=== PATIENT | female | born 1935 | race Hispanic/Latino ===

== ENCOUNTER → 2019-10-02 | Outpatient (CLI) | payer OTHER | END | disposition home or self-care (01) | LOC: SHCH 10:50 | PROVIDERS: ATTEND Internal Medicine Cardiovascular Disease | DX: I10 Essential (primary) hypertension (principal) | CPT/HCPCS: 93925 ==

== ENCOUNTER 2020-10-26 14:42 | Inpatient (IN) | payer OTHER ==
[~2020-10-26] VITALS: Ht 154.9 cm; Wt 71.7 kg
[2020-10-26] MEDS ORDERED: PHENAZOPYRIDINE HCL 200 MG TABLET ONE (14:53)
[2020-10-26] MEDS ORDERED: CEFTRIAXONE 1G VIAL ONE (14:53)
[2020-10-26 15:30] LABS: BASOPHILS % (AUTO) 0.5 % (0.0-5.0); EOSINOPHILS % (AUTO) 0.7 % (0.0-8.0); HEMATOCRIT 42.1 % (36-48); LYMPHOCYTES % (AUTO) 18.1 % (21.0-51.0); MEAN CORPUSCULAR HEMOGLOBIN 29.6 pg (27.0-33.0); MEAN CORPUSCULAR HGB CONC 33.5 g/dL (32.0-36.0); MEAN CORPUSCULAR VOLUME 88.3 fL (79-99); MONOCYTES % (AUTO) 6.4 % (3.0-13.0); NEUTROPHILS % (AUTO) 73.8 % (40.0-77.0); PLATELET COUNT (AUTO) 221 K/uL (130-400); RED BLOOD CELL COUNT(AUTO) 4.77 MIL/uL (4.00-5.50); WHITE BLOOD COUNT (AUTO) 8.8 K/uL (4.8-10.8)
[2020-10-26 15:35] LABS: APPEARANCE,URINE Clear (CLEAR); BILIRUBIN,URINE Negative (NEGATIVE); COLOR,URINE Yellow (YELLOW); GLUCOSE, URINE (UA) >=1000 mg/dL (NEGATIVE); KETONES,URINE 40 mg/dL (NEGATIVE); LEUKOCYTE ESTERASE ,URINE Trace (NEGATIVE); NITRATE,URINE Positive (NEGATIVE); OCCULT BLOOD,URINE Negative (NEGATIVE); PROTEIN,URINE Trace mg/dL (NEGATIVE)
[2020-10-26 15:40] LABS: BACTERIA,URINE Moderate /HPF (None Seen); POTASSIUM 4.3 mmol/L (3.5-5.1); RBC,URINE 0-1 /HPF (0-1)
[2020-10-26] MEDS ORDERED: ONDANSETRON 4MG INJ ONE (15:40)
[2020-10-26] MEDS ORDERED: 0.9%NACL 1000ML 1,000 ML IV ONE (15:40)
[2020-10-26 15:42] LABS: SQUAMOUS EPITHELIAL CELL,UR Few /HPF (0-2)
[2020-10-26] MEDS ORDERED: LABETALOL 20MG SYG IV ONE (16:48)
[2020-10-26] MEDS ORDERED: METOCLOPRAMIDE 10 MG/2 ML VIAL ONE (16:48)
[2020-10-26] MEDS ORDERED: IOHEXOL 350 MG/ML 100ML INFUS..BTL IV ONE (17:57)
[2020-10-26] MEDS ORDERED: ONDANSETRON 4MG INJ IV PRN (19:45)
[2020-10-26] MEDS ORDERED: ACETAMINOPHEN 325 MG TAB PO PRN ×2 (19:45)
[2020-10-26] MEDS ORDERED: NITROGLYCERIN 0.4 MG SL TAB SL PRN (19:45)
[2020-10-26] MEDS ORDERED: GUAIFENESIN-DM 200/20 MG 10 ML PO PRN (19:45)
[2020-10-26] MEDS ORDERED: LACTULOSE 20 GM/30 ML UDCUP PO PRN (19:45)
[2020-10-26] MEDS: BENZONATATE 100 MG CAPSULE PO SCH (21:00)
[2020-10-26] MEDS ORDERED: BENZONATATE 100 MG CAPSULE PO ONE (21:20)
[2020-10-26] MEDS ORDERED: FAMOTIDINE 20MG VIAL IV ONE (21:20)
[2020-10-26] MEDS ORDERED: METOPROLOL TARTRATE 1 MG/ML 5ML VIAL IV PRN (22:15)
[2020-10-27] MEDS ORDERED: MECLIZINE HCL 25 MG TABLET ONE (04:50)
[2020-10-27] MEDS: MECLIZINE HCL 25 MG TABLET PO SCH (05:00)
[2020-10-27] MEDS ORDERED: HYDRALAZINE 20MG/ML VIAL ONE (06:10)
[2020-10-27 06:13] LABS: BASOPHILS % (AUTO) 0.6 % (0.0-5.0); EOSINOPHILS % (AUTO) 1.5 % (0.0-8.0); LYMPHOCYTES % (AUTO) 25.9 % (21.0-51.0); MEAN CORPUSCULAR HEMOGLOBIN 30.3 pg (27.0-33.0); MEAN CORPUSCULAR VOLUME 86.6 fL (79-99); MONOCYTES % (AUTO) 8.5 % (3.0-13.0); NEUTROPHILS % (AUTO) 63.1 % (40.0-77.0); PLATELET COUNT (AUTO) 197 K/uL (130-400); RED BLOOD CELL COUNT(AUTO) 4.39 MIL/uL (4.00-5.50); RED CELL DISTRIBUTION WIDTH 12.9 % (11.0-15.5)
[2020-10-27 06:27] LABS: ALBUMIN 3.3 g/dL (3.5-5.0); BILIRUBIN,TOTAL 0.3 mg/dL (0.2-1.0); CREATININE 0.9 mg/dL (0.5-1.5); TOTAL PROTEIN, SERUM 6.7 g/dL (6.0-8.3)
[2020-10-27 06:34] LABS: B-TYPE NATRIURETIC PEPTIDE 465 pg/mL (0-100)
[2020-10-27] MEDS ORDERED: INSULIN HUMULIN R 100 UNIT/ML 3ML ONE (06:41)
[2020-10-27] MEDS ORDERED: CEFTRIAXONE 1G VIAL ONE (08:58)
[2020-10-27] MEDS: CEFTRIAXONE 500MG VIAL IV SCH (09:00)
[2020-10-27] MEDS: FAMOTIDINE 20MG VIAL IV SCH (09:27)
[2020-10-27] MEDS: BENZONATATE 100 MG CAPSULE PO SCH ×3 (09:27→21:00)
[2020-10-27] MEDS: CLOPIDOGREL 75MG TAB PO SCH (09:27)
[2020-10-27] MEDS: ASPIRIN 81MG CHEW TAB PO SCH (09:27)
[2020-10-27] MEDS: METOPROLOL TARTRATE 50 MG TAB PO SCH ×2 (09:28→21:00)
[2020-10-27 09:57] VITALS: BP 170/58
[2020-10-27 10:15] VITALS: BP 146/63
[2020-10-27] MEDS ORDERED: AEC81 PO (11:03)
[2020-10-27] MEDS ORDERED: METO100T14 PO (11:03)
[2020-10-27] MEDS ORDERED: CLOP75TA32 PO (11:03)
[2020-10-27] MEDS ORDERED: GADODIAMIDE 10 MMOL/20 ML VIAL IV ONE (13:10)
[2020-10-27] MEDS ORDERED: LABETALOL 20MG SYG IV SCH (14:15)
[2020-10-27] MEDS ORDERED: CLONIDINE HCL 0.1 MG TABLET PO PRN (14:15)
[2020-10-27 16:02] VITALS: BP 203/94
[2020-10-27 16:20] VITALS: BP 145/57
[2020-10-27 19:00] VITALS: BP 147/69
[2020-10-27] MEDS ORDERED: ALPRAZOLAM 0.25 MG TABLET PO PRN (20:30)
[2020-10-27] MEDS ORDERED: HALOPERIDOL INJ 5 MG/ML VIAL ONE (21:14)
[2020-10-27] MEDS ORDERED: HALOPERIDOL INJ 5 MG/ML VIAL IM SCH (21:30)
[2020-10-27] MEDS ORDERED: LORAZEPAM 2 MG/ML 1 ML VIAL IVP ONE (22:45)
[2020-10-27] MEDS ORDERED: LORAZEPAM 2 MG/ML 1 ML VIAL ONE (22:49)
[2020-10-27 23:37] LABS: BASOPHILS % (AUTO) 0.6 % (0.0-5.0); EOSINOPHILS % (AUTO) 3.1 % (0.0-8.0); HEMATOCRIT 43.7 % (36-48); LYMPHOCYTES % (AUTO) 15.5 % (21.0-51.0); MEAN CORPUSCULAR HGB CONC 33.9 g/dL (32.0-36.0); MEAN CORPUSCULAR VOLUME 88.5 fL (79-99); MONOCYTES % (AUTO) 6.2 % (3.0-13.0); PLATELET COUNT (AUTO) 224 K/uL (130-400); RED BLOOD CELL COUNT(AUTO) 4.94 MIL/uL (4.00-5.50); RED CELL DISTRIBUTION WIDTH 13.3 % (11.0-15.5); WHITE BLOOD COUNT (AUTO) 10.7 K/uL (4.8-10.8)
[2020-10-27 23:45] LABS: CARBON DIOXIDE 27 mmol/L (21-32); CHLORIDE 101 mmol/L (101-111); CREATININE 1.1 mg/dL (0.5-1.5); GLOMERULAR FILTR. RATE CALC 50 mL/min (>60); GLUCOSE,RANDOM 294 mg/dL (70-105); POTASSIUM 4.9 mmol/L (3.5-5.1); SODIUM SERUM 140 mmol/L (136-145); UREA NITROGEN, BLOOD 21 mg/dL (7-18)
[2020-10-27 23:58] LABS: ASPARTATE AMINOTRANSFERASE 19 U/L (10-37); BILIRUBIN,DIRECT 0.1 mg/dL (0.0-0.3); BILIRUBIN,TOTAL 0.5 mg/dL (0.2-1.0); THYROID STIMULATING HORMONE 10.26 uIU/mL (0.36-3.74); TOTAL PROTEIN, SERUM 7.9 g/dL (6.0-8.3)
[2020-10-28] VITALS (7 sets, daily range): BP systolic 95–171; BP diastolic 42–79
[2020-10-28 00:09] LABS: ALANINE AMINOTRANSFERASE 9 U/L (12-78); AMMONIA < 3 umol/L (11-32)
[2020-10-28] MEDS ORDERED: LEVOTHYROXINE 100MCG VIAL IV STA (02:24)
[2020-10-28] MEDS ORDERED: 0.9% NACL 500ML IV.SOLN 500 ML IV ONE (03:00)
[2020-10-28] MEDS ORDERED: LEVOTHYROXINE 100 MCG IV ONE (03:28)
[2020-10-28] MEDS: MECLIZINE HCL 25 MG TABLET PO SCH (04:06)
[2020-10-28 04:23] LABS: HEMATOCRIT 42.3 % (36-48); MEAN CORPUSCULAR HEMOGLOBIN 29.2 pg (27.0-33.0); MEAN CORPUSCULAR HGB CONC 32.6 g/dL (32.0-36.0); MEAN CORPUSCULAR VOLUME 89.4 fL (79-99); RED BLOOD CELL COUNT(AUTO) 4.73 MIL/uL (4.00-5.50); RED CELL DISTRIBUTION WIDTH 13.2 % (11.0-15.5)
[2020-10-28 04:42] LABS: CREATININE 1.1 mg/dL (0.5-1.5); POTASSIUM 4.6 mmol/L (3.5-5.1)
[2020-10-28] MEDS: INSULIN HUMULIN R 100 UNIT/ML 3ML SQ SCH ×4 (06:30→20:23)
[2020-10-28 08:50] LABS: T4 (THYROXINE) 7.1 ug/dL (4.7-13.3)
[2020-10-28] MEDS: METOPROLOL TARTRATE 50 MG TAB PO SCH ×2 (10:16→20:28)
[2020-10-28] MEDS: ENOXAPARIN SODIUM 30 MG/0.3 ML SQ SCH (10:17)
[2020-10-28] MEDS: FAMOTIDINE 20MG VIAL IV SCH (10:17)
[2020-10-28] MEDS: ASPIRIN 81MG CHEW TAB PO SCH (10:17)
[2020-10-28] MEDS: BENZONATATE 100 MG CAPSULE PO SCH ×3 (10:18→20:28)
[2020-10-28] MEDS: CLOPIDOGREL 75MG TAB PO SCH (10:18)
[2020-10-28] MEDS ORDERED: CEFTRIAXONE 1G VIAL ONE (10:23)
[2020-10-28] MEDS: CEFTRIAXONE 500MG VIAL IV SCH (10:26)
[2020-10-28] MEDS ORDERED: ZIPRASIDONE MESYLATE 20 MG/VIAL IM SCH (11:47)
[2020-10-28] MEDS: ATORVASTATIN 40 MG TABLET PO SCH (20:28)
[2020-10-28] MEDS: RISPERIDONE 1 MG TABLET PO SCH (20:28)
[2020-10-29] VITALS (8 sets, daily range): BP systolic 107–198; BP diastolic 44–87
[2020-10-29] MEDS: MECLIZINE HCL 25 MG TABLET PO SCH (05:00)
[2020-10-29] MEDS: INSULIN HUMULIN R 100 UNIT/ML 3ML SQ SCH ×4 (06:24→20:01)
[2020-10-29] MEDS: ENOXAPARIN SODIUM 30 MG/0.3 ML SQ SCH (09:02)
[2020-10-29] MEDS: RISPERIDONE 1 MG TABLET PO SCH (09:03)
[2020-10-29] MEDS: BENZONATATE 100 MG CAPSULE PO SCH ×3 (09:03→20:27)
[2020-10-29] MEDS: CLOPIDOGREL 75MG TAB PO SCH (09:03)
[2020-10-29] MEDS: FAMOTIDINE 20MG VIAL IV SCH (09:03)
[2020-10-29] MEDS: ASPIRIN 81MG CHEW TAB PO SCH (09:03)
[2020-10-29] MEDS: METOPROLOL TARTRATE 50 MG TAB PO SCH ×2 (09:05→20:01)
[2020-10-29] MEDS: CEFTRIAXONE 500MG VIAL IV SCH (11:58)
[2020-10-29] MEDS: TRAZODONE HCL 50 MG TAB PO SCH (20:01)
[2020-10-29] MEDS: ATORVASTATIN 40 MG TABLET PO SCH (20:01)
[2020-10-30] VITALS: BP 140/71
[2020-10-30 04:00] VITALS: BP 193/70
[2020-10-30] MEDS: MECLIZINE HCL 25 MG TABLET PO SCH (05:00)
[2020-10-30 05:07] LABS: HEMATOCRIT 43.5 % (36-48); MEAN CORPUSCULAR HEMOGLOBIN 29.7 pg (27.0-33.0); MEAN CORPUSCULAR HGB CONC 33.3 g/dL (32.0-36.0); RED BLOOD CELL COUNT(AUTO) 4.89 MIL/uL (4.00-5.50); RED CELL DISTRIBUTION WIDTH 13.4 % (11.0-15.5); WHITE BLOOD COUNT (AUTO) 9.3 K/uL (4.8-10.8)
[2020-10-30 05:25] LABS: POTASSIUM 5.2 mmol/L (3.5-5.1)
[2020-10-30 08:00] VITALS: BP 172/67
[2020-10-30] MEDS: CEFTRIAXONE 500MG VIAL IV SCH (09:26)
[2020-10-30] MEDS: FAMOTIDINE 20MG VIAL IV SCH (09:26)
[2020-10-30] MEDS: ASPIRIN 81MG CHEW TAB PO SCH (09:27)
[2020-10-30] MEDS: MEMANTINE HCL 5 MG TABLET PO SCH (09:27)
[2020-10-30] MEDS: METOPROLOL TARTRATE 50 MG TAB PO SCH ×4 (09:27→20:27)
[2020-10-30] MEDS: BENZONATATE 100 MG CAPSULE PO SCH ×3 (09:27→20:27)
[2020-10-30] MEDS: CLOPIDOGREL 75MG TAB PO SCH (09:28)
[2020-10-30] MEDS: RISPERIDONE 1 MG TABLET PO SCH (09:28)
[2020-10-30] MEDS: ENOXAPARIN SODIUM 30 MG/0.3 ML SQ SCH (09:29)
[2020-10-30] MEDS: INSULIN GLARGINE 100 UNITS/ML 10 ML VIAL SQ SCH (09:32)
[2020-10-30] MEDS: INSULIN HUMULIN R 100 UNIT/ML 3ML SQ SCH ×4 (09:32→21:00)
[2020-10-30 10:49] VITALS: BP 143/68
[2020-10-30] MEDS: ASPIRIN 81 MG EC TAB PO SCH (11:17)
[2020-10-30 16:09] VITALS: BP 130/40
[2020-10-30 20:00] VITALS: BP 128/49
[2020-10-30] MEDS: ATORVASTATIN 40 MG TABLET PO SCH (20:27)
[2020-10-30] MEDS: TRAZODONE HCL 50 MG TAB PO SCH (20:27)
[2020-10-31] VITALS (8 sets, daily range): BP systolic 127–158; BP diastolic 48–91
[2020-10-31] MEDS: MECLIZINE HCL 25 MG TABLET PO SCH (04:25)
[2020-10-31 05:54] LABS: HEMOGLOBIN A1C 11.5 % (4.0-6.0)
[2020-10-31 06:00] LABS: POTASSIUM 3.9 mmol/L (3.5-5.1)
[2020-10-31] MEDS: LEVOTHYROXINE 50 MCG TABLET PO SCH (07:02)
[2020-10-31] MEDS: METOPROLOL TARTRATE 50 MG TAB PO SCH ×3 (07:04→21:21)
[2020-10-31] MEDS: ASPIRIN 81 MG EC TAB PO SCH (07:04)
[2020-10-31] MEDS: INSULIN HUMULIN R 100 UNIT/ML 3ML SQ SCH ×4 (07:09→21:22)
[2020-10-31] MEDS: INSULIN GLARGINE 100 UNITS/ML 10 ML VIAL SQ SCH (08:00)
[2020-10-31] MEDS: CLOPIDOGREL 75MG TAB PO SCH (08:18)
[2020-10-31] MEDS: RISPERIDONE 1 MG TABLET PO SCH (08:18)
[2020-10-31] MEDS: ASPIRIN 81MG CHEW TAB PO SCH (08:18)
[2020-10-31] MEDS: BENZONATATE 100 MG CAPSULE PO SCH ×3 (08:19→21:21)
[2020-10-31] MEDS: FAMOTIDINE 20MG VIAL IV SCH (08:19)
[2020-10-31] MEDS: MEMANTINE HCL 5 MG TABLET PO SCH (08:19)
[2020-10-31] MEDS: ENOXAPARIN SODIUM 30 MG/0.3 ML SQ SCH (08:20)
[2020-10-31] MEDS: CEFTRIAXONE 500MG VIAL IV SCH (08:20)
[2020-10-31] MEDS ORDERED: FLUCONAZOLE 100 MG TAB PO SCH (20:00)
[2020-10-31] MEDS: ATORVASTATIN 40 MG TABLET PO SCH (21:21)
[2020-10-31] MEDS: TRAZODONE HCL 50 MG TAB PO SCH (21:21)
[2020-11-01 03:00] VITALS: BP 144/70
[2020-11-01] MEDS: MECLIZINE HCL 25 MG TABLET PO SCH (05:00)
[2020-11-01] MEDS: LEVOTHYROXINE 50 MCG TABLET PO SCH (05:42)
[2020-11-01] MEDS: INSULIN HUMULIN R 100 UNIT/ML 3ML SQ SCH (07:01)
[2020-11-01] MEDS: ASPIRIN 81 MG EC TAB PO SCH (07:04)
[2020-11-01] MEDS: RISPERIDONE 1 MG TABLET PO SCH (07:21)
[2020-11-01] MEDS: MEMANTINE HCL 5 MG TABLET PO SCH (07:21)
[2020-11-01] MEDS: INSULIN GLARGINE 100 UNITS/ML 10 ML VIAL SQ SCH (07:21)
[2020-11-01] MEDS: ASPIRIN 81MG CHEW TAB PO SCH (07:21)
[2020-11-01] MEDS: METOPROLOL TARTRATE 50 MG TAB PO SCH (07:21)
[2020-11-01] MEDS: FAMOTIDINE 20MG VIAL IV SCH (07:22)
[2020-11-01] MEDS: ENOXAPARIN SODIUM 30 MG/0.3 ML SQ SCH (07:22)
[2020-11-01] MEDS: CEFTRIAXONE 500MG VIAL IV SCH (07:22)
[2020-11-01] MEDS: CLOPIDOGREL 75MG TAB PO SCH (07:22)
[2020-11-01] MEDS: BENZONATATE 100 MG CAPSULE PO SCH (07:22)
[2020-11-01 08:00] VITALS: BP 150/54
== END 2020-11-01 10:46 | DRG 689 ==
LOC: EDH 14:42 → EDHIP 19:18 → OBSVTOIN 19:18 → 4AH 10-27 08:18
PROVIDERS: ADMIT Internal Medicine Pulmonary Disease; ATTEND Internal Medicine Pulmonary Disease
DX: N30.00 Acute cystitis without hematuria (principal); G92 Toxic encephalopathy; F05 Delirium due to known physiological condition; G45.9 Transient cerebral ischemic attack, unspecified; B96.1 Klebsiella pneumoniae [K. pneumoniae] as the cause of diseases classified elsewhere; I10 Essential (primary) hypertension; I25.10 Atherosclerotic heart disease of native coronary artery without angina pectoris; E11.9 Type 2 diabetes mellitus without complications; I16.0 Hypertensive urgency; E86.0 Dehydration; F41.9 Anxiety disorder, unspecified; F03.90 Unspecified dementia, unspecified severity, without behavioral disturbance, psychotic disturbance, mood disturbance, and anxiety; F32.9 Major depressive disorder, single episode, unspecified; E03.9 Hypothyroidism, unspecified; Z79.4 Long term (current) use of insulin; I25.2 Old myocardial infarction; Z79.02 Long term (current) use of antithrombotics/antiplatelets; Z79.82 Long term (current) use of aspirin; Z79.890 Hormone replacement therapy; Z91.81 History of falling; Z90.710 Acquired absence of both cervix and uterus; Z90.721 Acquired absence of ovaries, unilateral; Z86.73 Personal history of transient ischemic attack (TIA), and cerebral infarction without residual deficits; Z83.3 Family history of diabetes mellitus; R07.9 Chest pain, unspecified
CPT/HCPCS: 36415; 70496; 70498; 70549; 70553; 71045; 80048; 80053; 81001; 82140; 82248; 82607; 82948; 83036; 83880; 84436; 84439; 84443; 84480; 84481; 84482; 84484; 85025; 85027; 87077; 87088; 87186; 93005; 93880; 97039; 99291; A9579; G0378; J0360; J0696; J1630; J1650; J1815; J2060; J2405; J2765; J3486; J3490; J7030; Q9967

== ENCOUNTER 2022-04-28 12:15 | Observation (INO) | payer OTHER ==
[~2022-04-28] VITALS: Ht 162.6 cm; Wt 76.0 kg
[~2022-04-28 12:15] MED LIST: AEC81 PO; CLOP75TA32 PO; METO100T14 PO
[2022-04-28] MEDS ORDERED: LACTATED RINGERS 1000ML 1,000 ML IV ONE (14:00)
[2022-04-28] MEDS ORDERED: ACETAMINOPHEN 325 MG TAB PO ONE (14:00)
[2022-04-28] MEDS ORDERED: ACETAMINOPHEN 500 MG TABLET ONE (14:57)
[2022-04-28 15:24] LABS: BASOPHILS % (AUTO) 0.2 % (0.0-5.0); HEMATOCRIT 37.7 % (36-48); LYMPHOCYTES % (AUTO) 10.3 % (21.0-51.0); MEAN CORPUSCULAR HEMOGLOBIN 30.3 pg (27.0-33.0); MEAN CORPUSCULAR HGB CONC 34.7 g/dL (32.0-36.0); MEAN CORPUSCULAR VOLUME 87.1 fL (79-99); MONOCYTES % (AUTO) 4.8 % (3.0-13.0); NEUTROPHILS % (AUTO) 84.3 % (40.0-77.0); PLATELET COUNT (AUTO) 199 K/uL (130-400); RED BLOOD CELL COUNT(AUTO) 4.33 MIL/uL (4.00-5.50); WHITE BLOOD COUNT (AUTO) 13.2 K/uL (4.8-10.8)
[2022-04-28] MEDS ORDERED: ACETAMINOPHEN 500 MG TABLET PO ONE (15:30)
[2022-04-28 15:35] LABS: CREATININE 1.1 mg/dL (0.5-1.5); POTASSIUM 4.5 mmol/L (3.5-5.1)
[2022-04-28 15:39] LABS: ALBUMIN 3.4 g/dL (3.5-5.0); TOTAL PROTEIN, SERUM 6.9 g/dL (6.0-8.3)
[2022-04-28 16:00] VITALS: BP 171/71
[2022-04-28] MEDS ORDERED: LACTULOSE 20 GM/30 ML UDCUP PO PRN (16:30)
[2022-04-28] MEDS ORDERED: HYDRALAZINE 20MG/ML VIAL IV PRN (16:30)
[2022-04-28] MEDS ORDERED: ACETAMINOPHEN 650 MG SUPPOSITORY RC PRN (16:30)
[2022-04-28] MEDS ORDERED: CLONIDINE HCL 0.1 MG TABLET PO PRN (16:30)
[2022-04-28] MEDS ORDERED: ACETAMINOPHEN 325 MG TAB PO PRN (16:30)
[2022-04-28] MEDS: LACTATED RINGERS 1000ML 1,000 ML IV SCH (17:12)
[2022-04-28] MEDS: CEFTRIAXONE 1G VIAL IVP SCH (17:13)
[2022-04-28] MEDS: INSULIN HUMULIN R 100 UNIT/ML 3ML SQ SCH ×2 (17:15→20:29)
[2022-04-28 17:45] LABS: CREATINE KINASE, TOTAL 71 U/L (21-232); MYOGLOBIN 142 ng/mL (10-92)
[2022-04-28] MEDS ORDERED: METF-444 PO (18:15)
[2022-04-28] MEDS ORDERED: ATOR40TA71 PO (18:15)
[2022-04-28] MEDS ORDERED: GLIP10TA9 PO (18:15)
[2022-04-28 20:18] VITALS: BP 160/82
[2022-04-28 23:37] VITALS: BP 164/73
[2022-04-29 04:04] VITALS: BP 164/70
[2022-04-29] MEDS: TRAMADOL HCL 50 MG TABLET PO PRN ×2 (04:23→22:23)
[2022-04-29 05:01] LABS: BASOPHILS % (AUTO) 0.3 % (0.0-5.0); EOSINOPHILS % (AUTO) 1.9 % (0.0-8.0); HEMATOCRIT 36.8 % (36-48); LYMPHOCYTES % (AUTO) 16.4 % (21.0-51.0); MEAN CORPUSCULAR HEMOGLOBIN 30.9 pg (27.0-33.0); MEAN CORPUSCULAR HGB CONC 35.6 g/dL (32.0-36.0); MEAN CORPUSCULAR VOLUME 86.8 fL (79-99); MONOCYTES % (AUTO) 7.4 % (3.0-13.0); NEUTROPHILS % (AUTO) 73.6 % (40.0-77.0); PLATELET COUNT (AUTO) 209 K/uL (130-400); RED BLOOD CELL COUNT(AUTO) 4.24 MIL/uL (4.00-5.50); RED CELL DISTRIBUTION WIDTH 13.2 % (11.0-15.5); WHITE BLOOD COUNT (AUTO) 10.8 K/uL (4.8-10.8)
[2022-04-29 05:23] LABS: CREATININE 0.8 mg/dL (0.5-1.5); MAGNESIUM 1.8 mg/dL (1.80-2.40); PHOSPHORUS 3.5 mg/dL (2.5-4.9); POTASSIUM 4.4 mmol/L (3.5-5.1)
[2022-04-29] MEDS: INSULIN HUMULIN R 100 UNIT/ML 3ML SQ SCH ×4 (06:07→20:54)
[2022-04-29 07:30] VITALS: BP 166/86
[2022-04-29] MEDS: LACTATED RINGERS 1000ML 1,000 ML IV SCH ×2 (08:30)
[2022-04-29] MEDS: ASPIRIN 325MG TAB PO SCH (09:14)
[2022-04-29] MEDS: ATORVASTATIN 40 MG TABLET PO SCH (09:14)
[2022-04-29] MEDS: POLYETHYLENE GLYCOL 3350 17 GM POWD.PACK PO SCH (09:14)
[2022-04-29] MEDS: PANTOPRAZOLE 40 MG TAB DR PO SCH (09:14)
[2022-04-29] MEDS: ENOXAPARIN SODIUM 30 MG/0.3 ML SQ SCH (09:15)
[2022-04-29] MEDS ORDERED: AMLODIPINE 5 MG TAB PO ONE (10:00)
[2022-04-29 13:07] VITALS: BP 152/94
[2022-04-29 16:00] VITALS: BP 150/63
[2022-04-29 16:28] LABS: APPEARANCE,URINE CLOUDY (CLEAR); BILIRUBIN,URINE NEGATIVE (NEGATIVE); COLOR,URINE YELLOW (YELLOW); GLUCOSE, URINE (UA) 500 mg/dL (NEGATIVE); KETONES,URINE 15 mg/dL (NEGATIVE); LEUKOCYTE ESTERASE ,URINE NEGATIVE Leu/uL (NEGATIVE); NITRATE,URINE NEGATIVE (NEGATIVE); OCCULT BLOOD,URINE NEGATIVE (NEGATIVE); PROTEIN,URINE NEGATIVE (NEGATIVE); UROBILINOGEN,URINE 0.2 mg/dL (0.2-1.0)
[2022-04-29 16:42] LABS: BACTERIA,URINE Many /HPF (None Seen); MUCUS,URINE Few LPF (None Seen); SQUAMOUS EPITHELIAL CELL,UR Few /HPF (0-2)
[2022-04-29 16:43] LABS: AMORPHOUS SEDIMENT,UR Moderate /LPF (None Seen)
[2022-04-29] MEDS ORDERED: IBUP-2077 PO (16:47)
[2022-04-29] MEDS ORDERED: AMLO5TAB4 PO (16:47)
[2022-04-29] MEDS: CEFTRIAXONE 1G VIAL IVP SCH (17:10)
[2022-04-29 20:00] VITALS: BP 152/56
[2022-04-30] VITALS: BP 183/87
[2022-04-30 04:00] VITALS: BP 178/85
[2022-04-30] MEDS: INSULIN HUMULIN R 100 UNIT/ML 3ML SQ SCH ×3 (06:47→17:09)
[2022-04-30 07:30] VITALS: BP 140/61
[2022-04-30] MEDS ORDERED: AMLODIPINE 5 MG TAB PO SCH (09:00)
[2022-04-30] MEDS: ATORVASTATIN 40 MG TABLET PO SCH (09:06)
[2022-04-30] MEDS: ENOXAPARIN SODIUM 30 MG/0.3 ML SQ SCH (09:06)
[2022-04-30] MEDS: PANTOPRAZOLE 40 MG TAB DR PO SCH (09:07)
[2022-04-30] MEDS: ASPIRIN 325MG TAB PO SCH (09:07)
[2022-04-30] MEDS: POLYETHYLENE GLYCOL 3350 17 GM POWD.PACK PO SCH (09:07)
[2022-04-30 11:30] VITALS: BP 139/63
[2022-04-30 15:55] VITALS: BP 121/55
== END 2022-04-30 07:59 ==
LOC: EDH 12:15 → EDHIP 16:20 → 4DH 18:00
PROVIDERS: ADMIT Internal Medicine Pulmonary Disease; ATTEND Internal Medicine Pulmonary Disease
DX: R53.1 Weakness (principal); M25.552 Pain in left hip; M25.551 Pain in right hip; M25.572 Pain in left ankle and joints of left foot; M25.571 Pain in right ankle and joints of right foot; E11.65 Type 2 diabetes mellitus with hyperglycemia; D72.829 Elevated white blood cell count, unspecified; I10 Essential (primary) hypertension; I21.4 Non-ST elevation (NSTEMI) myocardial infarction; E03.9 Hypothyroidism, unspecified; K59.00 Constipation, unspecified; E66.9 Obesity, unspecified; I25.10 Atherosclerotic heart disease of native coronary artery without angina pectoris; K80.10 Calculus of gallbladder with chronic cholecystitis without obstruction; Z79.84 Long term (current) use of oral hypoglycemic drugs; Z91.81 History of falling; Z79.899 Other long term (current) drug therapy; W18.30XA Fall on same level, unspecified, initial encounter; Y93.89 Activity, other specified; Y92.89 Other specified places as the place of occurrence of the external cause
CPT/HCPCS: 96374; 96372 ×3; 96361 ×2; 99285; 82550 ×3; 83874 ×3; 84484 ×4; 80053; 83690; 85025 ×2; 82948 ×9; 36415 ×2; 73610; 71045; 72170; 74176; 93005; 96376; 83735; 84100; 80048; 85378; 87077; 87088; 87186; 81001; 78582; 97161; 97039 ×3; 97530; G0378 ×37; J7120 ×2; J0696 ×2; J1815 ×7; J1650 ×2; A9540; A9558